=== PATIENT | female | born 2005 | race Caucasian/White ===

== ENCOUNTER 2023-06-25 22:37 | Inpatient (IN) ==
[2023-06-26 02:44] LABS: ABS Basophils 0.1 10^3/uL (0.0-0.1); ABS Eosinophils 0.1 10^3/uL (0.0-0.5); ABS Lymphocytes 2.8 10^3/uL (1.0-4.8); ABS Monocytes 0.4 10^3/uL (0.0-0.9); ABS Neutrophils 3.6 10^3/uL (1.5-7.6); ABS Nucleated RBC 0.01 10^3/ul; Eosinophil % 1.9 %; Hematocrit 38.5 % (35-45); Lymphocyte % 40.3 %; Mean Corpuscular Hemoglobin 30.4 pg (27-33); Mean Corpuscular Hgb Conc 33.7 g/dL (31-36); Mean Platelet Volume 6.9 fL (7.5-11.2); Nucleated Red Blood Cells % 0.1 %/100WBC (0.0-0.8); Platelet Count 312 10^3/uL (150-450); Red Blood Count 4.27 10^6/uL (3.63-4.92); Red Cell Distribution Width 13.3 % (12-17); White Blood Count 7.1 10^3/uL (3.8-11.8)
[2023-06-26 02:58] LABS: Urine Appearance Clear; Urine Bilirubin Negative (Negative); Urine Blood Negative (Negative); Urine Color Light-Yellow; Urine Glucose Negative (Negative); Urine Ketones Negative (Negative); Urine Nitrite Negative (Negative); Urine Protein Negative (Negative); Urine Specific Gravity 1.013 (1.002-1.030); Urine Urobilinogen Negative (Negative)
[2023-06-26 03:13] LABS: Urine Bacteria Absent /HPF (Absent); Urine Red Blood Cell Absent /HPF (0-Trace); Urine Squamous Epithelial Cell Present /HPF (Absent); Urine White Blood Cell 1+(6-10/hpf) /HPF (0-Trace)
[2023-06-26 03:22] LABS: Urine Benzodiazepine Screen None Detected (None Detect); Urine Cannabinoids Screen Presumptive Positive (None Detect); Urine Opiates Screen None Detected (None Detect)
[2023-06-26 03:27] LABS: ALT 12 U/L (7-52); AST 11 U/L (13-39); Acetaminophen < 15 mcg/mL; Albumin 4.1 g/dL (3.2-5.2); Albumin/Globulin Ratio 1.6 (1-3); Alcohol, S < 13 mg/dL (<13); Alkaline Phosphatase 48 U/L (35-149); Anion Gap 6 mmol/L (2-16); Blood Urea Nitrogen 12 mg/dL (6-24); CO2 Carbon Dioxide 26 mmol/L (22-32); Calcium 9.2 mg/dL (8.6-10.3); Chloride 104 mmol/L (101-111); Creatinine, Serum 0.71 mg/dL (0.51-0.95); Globulin 2.5 g/dL (2-4); Glucose 119 mg/dL (70-100); Potassium 3.9 mmol/L (3.5-5.0); Salicylate < 2.50 mg/dL (<30); Sodium 136 mmol/L (135-145); Total Bilirubin 0.5 mg/dL (0.2-1.0); Total Protein 6.6 g/dL (6.4-8.9); eGFR CKD-EPI 124.8 (>60)
[2023-06-26 03:42] LABS: TSH Ultra Thyroid Stim Horm 1.54 mcIU/mL (0.34-5.60)
[2023-06-26 04:41] LABS: HIV 4th Generation Nonreactive (Nonreactive)
[2023-06-26 04:52] LABS: HCG Pregnancy < 0.60 mIU/mL
[2023-06-26] MEDS: Nicotine GUM 2MG FRUIT FLAVOR PO PRN (16:21)
[2023-06-27] MEDS: Nicotine PATCH 21 MG/24 HR PATCH TRANSDERM SCH (07:13)
[2023-06-27] MEDS: OLANZapine 5 mg TAB *ODT ONE (13:15)
[2023-06-27] MEDS: OLANZapine 5 mg TAB *ODT PO ONE (14:36)
[2023-06-28] MEDS: OLANZapine 5 mg TAB *ODT ONE (00:30)
[2023-06-28] MEDS: OLANZapine 5 mg TAB *ODT PO ONE (01:44)
[2023-06-28 08:05] LABS: HDL Cholesterol 106.9 mg/dL
[2023-07-04] MEDS ORDERED: Influenza vaccine *QUAD* *2023-24* 0.5 ML SYRINGE IM ONE (09:00)
== END 2023-07-03 11:30 | disposition home or self-care (01) | DRG 897 ==
LOC: ED 22:37 → BSU 06-26 12:45
PROVIDERS: ADMIT Student in an Organized Health Care Education/Training Program; ATTEND Student in an Organized Health Care Education/Training Program